=== PATIENT | female | born 1970 | race Caucasian/White ===

== ENCOUNTER 2021-07-02 13:38 | Emergency (ER) | payer BC ==
[~2021-07-02] VITALS: Ht 180.3 cm; Wt 93.2 kg
--- NOTE | 2021-07-02 14:10 | NUR ---
PATIENT IN XRAY. PER THE PA, NO NEED FOR LABS AT THIS TIME. HE WILL RE-EVALUATE NEEDED.
--- NOTE | 2021-07-02 14:18 | NUR ---
PER PA, PATIENT CLEARED TO RETURN TO WAITING ROOM IN WHEELCHAIR. PATIENT IS CLEARED PER THE PA FROM LEVEL 3 TRAUMA STATUS.
[2021-07-02] MEDS ORDERED: HYDROcodone/acetaminophen 5mg/325mg tablet PO ONE (14:25)
[2021-07-02] MEDS ORDERED: HYDR-3965 PO (17:21)
[2021-07-02 17:48] VITALS: BP 146/70
== END 2021-07-02 17:42 | disposition home or self-care (01) ==
LOC: ER 13:39
DX: S20.211A Contusion of right front wall of thorax, initial encounter (principal); S40.811A Abrasion of right upper arm, initial encounter; M25.551 Pain in right hip; R07.81 Pleurodynia; M25.511 Pain in right shoulder; W19.XXXA Unspecified fall, initial encounter; Y93.89 Activity, other specified; Y92.89 Other specified places as the place of occurrence of the external cause; Y99.8 Other external cause status
CPT/HCPCS: 71046; 73030; 99285